=== PATIENT | female | born 1950 | race Hispanic/Latino ===

== ENCOUNTER 2018-02-13 18:00 | Emergency (ER) | payer MEDICARE ==
--- NOTE | 2018-02-13 19:53 | RAD ---
FOUR VIEWS OF THE LEFT KNEE: 02/13/18 COMPARISON: None. HISTORY: Fall, trauma, pain. FINDINGS: No significant knee joint effusion is noted. There is mild enthesophyte formation at the insertion of the quadriceps tendon. There is no displaced fracture or evidence of dislocation noted. IMPRESSION: No acute osseous abnormality. POS: [facility]
--- NOTE | 2018-02-13 20:40 | RAD ---
THREE VIEWS OF THE RIGHT WRIST 02/13/18 COMPARISON: None. HISTORY: Fall, trauma, pain. FINDINGS: There is a subtle oblique fracture in the region of the radial styloid suspected. No evidence for dis location is seen. IMPRESSION: Findings suggesting a subtle obliquely oriented nondisplaced fracture in the region of the radial sty loid. POS: [facility]
[2018-02-13] MEDS ORDERED: Adacel (T-DAP) 0.5 ML VIAL ONE (21:03)
== END 2018-02-13 22:30 | disposition home or self-care (01) ==
LOC: ERS 18:00
DX: S52.501A Unspecified fracture of the lower end of right radius, initial encounter for closed fracture (principal); S80.02XA Contusion of left knee, initial encounter; E11.9 Type 2 diabetes mellitus without complications; I10 Essential (primary) hypertension; G47.30 Sleep apnea, unspecified; Z79.899 Other long term (current) drug therapy; W01.198A Fall on same level from slipping, tripping and stumbling with subsequent striking against other object, initial encounter
CPT/HCPCS: 29125; 90471; 90715